=== PATIENT | male | born 1990 | race Two or more races ===

== ENCOUNTER 2023-11-04 12:21 | Emergency (ER) | payer OTHER ==
[~2023-11-04] VITALS: Ht 175.3 cm; Wt 111.3 kg
[2023-11-04 13:23] VITALS: BP 148/73; PULSE 93; RESP 18; O2SAT 95
[2023-11-04] MEDS ORDERED: NAP500T PO (15:52)
[2023-11-04] MEDS ORDERED: CEPH500C PO (15:52)
[2023-11-04] MEDS: ceFAZolin 2 GM/D5W50ml 50 ML IV ONE (16:15)
[2023-11-04] MEDS: KETOROLAC TROMETH 30 MG/ML 1ML VIAL IV ONE (16:27)
== END 2023-11-04 17:16 | disposition home or self-care (01) ==
LOC: ER 12:21
DX: L03.113 Cellulitis of right upper limb (principal); Z79.899 Other long term (current) drug therapy
CPT/HCPCS: 96365; 96375; 99284; J0690; J1885

== ENCOUNTER 2023-11-06 10:11 | Emergency (ER) | payer OTHER ==
[~2023-11-06] VITALS: Ht 175.3 cm; Wt 131.1 kg
[~2023-11-06 10:11] MED LIST: CEPH500C PO; NAP500T PO
[2023-11-06 11:31] VITALS: BP 157/83; PULSE 68; RESP 18; TEMP 97.8; O2SAT 97
== END 2023-11-06 12:00 | disposition home or self-care (01) ==
LOC: ER 10:11
DX: L03.113 Cellulitis of right upper limb (principal)

== ENCOUNTER 2024-01-12 17:08 | Emergency (ER) | payer OTHER ==
[~2024-01-12] VITALS: Ht 175.3 cm; Wt 110.2 kg
[2024-01-12 17:15] VITALS: TEMP 98.1
[2024-01-12 17:31] VITALS: BP 129/104; PULSE 74; RESP 18; O2SAT 94
[2024-01-12] MEDS: NEOMYCIN-BACITRACIN-POLYM UNITDOSE PKG TOP OINT TOP ONE (19:00)
[2024-01-12] MEDS: LIDOCAINE 1% HCL (LOCAL ANESTH.) INJ 20ML MDV ID ONE (19:00)
[2024-01-12] MEDS: CLINDAMYCIN HCL 150 MG CAP PO ONE (19:03)
[2024-01-12] MEDS: HYDROcodone-ACET 5/325MG TAB PO ONE (19:03)
[2024-01-12] MEDS ORDERED: MUPI2OIN2 EX (19:06)
[2024-01-12] MEDS ORDERED: IBUP1TAB5 PO (19:06)
[2024-01-12] MEDS ORDERED: CLIN1CAP70 PO (19:06)
== END 2024-01-12 19:31 | disposition home or self-care (01) ==
LOC: ER 17:08
DX: L60.0 Ingrowing nail (principal)
CPT/HCPCS: 11730; 99284; J2001

== ENCOUNTER 2024-06-16 10:05 | Emergency (ER) | payer OTHER ==
[~2024-06-16] VITALS: Ht 175.3 cm; Wt 103.3 kg
[~2024-06-16 10:05] MED LIST changes: +CLIN1CAP70 PO; +IBUP1TAB5 PO; +MUPI2OIN2 EX
[2024-06-16] MEDS: LIDOCAINE 1% (LOCAL ANESTH.) PF 5ml SDV ID ONE (10:45)
[2024-06-16] MEDS: NEOMYCIN-BACITRACIN-POLYM UNITDOSE PKG TOP OINT TOP ONE (10:45)
[2024-06-16] MEDS: LIDOCAINE 2%HCL (LOCAL ANESTH.) INJ 20ML MDV ID ONE (11:00)
[2024-06-16] MEDS ORDERED: BACDST PO (11:21)
[2024-06-16] MEDS ORDERED: IBUP-1453 PO (11:21)
[2024-06-16 12:20] VITALS: BP 134/75; PULSE 51; RESP 16; TEMP 97.8; O2SAT 98
== END 2024-06-16 12:31 | disposition home or self-care (01) ==
LOC: ER 10:05
DX: L03.112 Cellulitis of left axilla (principal); F41.9 Anxiety disorder, unspecified
CPT/HCPCS: 10060